=== PATIENT | female | born 1955 | race Caucasian/White ===

== ENCOUNTER 2021-09-19 13:29 | Emergency (ER) | payer OTHER ==
[~2021-09-19] VITALS: Ht 160 cm; Wt 59.0 kg
[2021-09-19 13:47] VITALS: BP 123/57
[2021-09-19] MEDS ORDERED: NACL 0.9% 1,000 ML IV ONE (14:00)
[2021-09-19] MEDS ORDERED: MORPHINE SULFATE 4 MG/ML SYR IVP ONE ×2 (14:00→16:35)
--- NOTE | 2021-09-19 14:00 | NUR ---
65/F BIB SELF WITH C/O GENERALIZED BODY PAIN X2 DAYS. DENIES RECENT INJURY OR TRAUMA, REPORTS TAKING NORCO WITH NO RELIEF. PATIENT HAS LIVER CANCER AND RECEIVES CHEMO [id number]. PT STATED WENT TO HER GI DR DAVID LAST WEDNESDAY AND HAD A PARACENTHESIS IN HIS OFFICE, PT STATED SITE IS DRAINING ALOT, OSTOMY BAG NOTED ON SITE WITH YELLOW FLUID NOTED. MEDHX: LIVER CANCER ALLERGIES: NKA
[2021-09-19 14:26] LABS: EOSINOPHILS # (AUTO) 0.1 K/uL (0-0.4); EOSINOPHILS % (AUTO) 1.5 % (0.0-4.0); HEMATOCRIT 21.6 % (36-48); LYMPHOCYTES # (AUTO) 0.6 K/uL (2.5-16.5); LYMPHOCYTES % (AUTO) 17.3 % (20.5-51.1); MEAN CORPUSCULAR HEMOGLOBIN 26 pg (27-31); MEAN CORPUSCULAR HGB CONC 31 g/dL (33-37); MEAN CORPUSCULAR VOLUME 82.4 fL (80-94); MONOCYTES # (AUTO) 0.4 K/uL (0.8-1.0); MONOCYTES % (AUTO) 11.7 % (1.7-9.3); NEUTROPHILS # (AUTO) 2.4 K/uL (1.8-7.7); NEUTROPHILS % (AUTO) 68.5 % (42.2-75.2); PLATELET COUNT (AUTO) 74 K/uL (140-450); RED BLOOD CELL COUNT(AUTO) 2.62 MIL/uL (4.20-5.40); RED CELL DISTRIBUTION WIDTH 19.9 % (11.6-13.7); WHITE BLOOD COUNT (AUTO) 3.6 K/uL (4.8-10.8)
[2021-09-19 14:31] LABS: HEMOGLOBIN 6.8 g/dL (12.0-16.0)
--- NOTE | 2021-09-19 16:32 | NUR ---
RECEIVED PHONE CALL FROM ANT ROBERTS, [phone], STATED SHE IS THE PERSON THAT WILL TAKE PT HOME, TO CALL HER WHEN PT GETS DC
[2021-09-19 16:47] LABS: ANION GAP 10.7 (8-16); CARBON DIOXIDE 23.6 mmol/L (21-32); CREATININE 0.8 mg/dL (0.6-1.3); POTASSIUM 4.3 mmol/L (3.5-5.1)
--- NOTE | 2021-09-19 17:15 | NUR ---
Patient discharged with v/s stable. Written and verbal after care instructions given and explained. Patient verbalized understanding. Ambulatory with steady gait. All questions addressed prior to discharge. Advised to follow up with PMD.
== END 2021-09-19 17:20 | disposition home or self-care (01) ==
LOC: MED 13:29
DX: M79.604 Pain in right leg (principal); M79.605 Pain in left leg; M79.601 Pain in right arm; M79.602 Pain in left arm; M79.10 Myalgia, unspecified site; Z85.05 Personal history of malignant neoplasm of liver
CPT/HCPCS: 36415; 80048; 85025; 96361; 96374; 96376; 99284; J2270